=== PATIENT | male | born 1980 | race African-American/Black ===

== ENCOUNTER 2021-02-10 05:51 | Inpatient (IN) | payer SELFPAY ==
[~2021-02-10] VITALS: Ht 167.6 cm; Wt 72.6 kg
[2021-02-10] MEDS ORDERED: SODIUM CHLORIDE 0.9% 1000ML 1,000 ML IV STA (05:55)
[2021-02-10] MEDS ORDERED: MULTIVITAMINS- 12 INJECTION 10 ML, FOLIC ACID MDV 5 MG, THIAMINE HCL INJ 100 MG in SODI... IV STA (05:57)
[2021-02-10] MEDS ORDERED: DIAZEPAM INJ 5 MG/ML 2 ML IV ONE (06:30)
[2021-02-10 06:32] LABS: BASOPHILS % 0.2 % (0.0-1.0); HEMATOCRIT 32.4 % (38.2-49.6); HEMOGLOBIN 10.8 g/dL (14.0-18.0); LYMPHOCYTES # (AUTO) 0.9 (1.0-3.2); LYMPHOCYTES % 6.7 % (18.0-39.1); MEAN CORPUSCULAR HEMOGLOBIN 32.6 pg (28-32); MEAN CORPUSCULAR HGB CONC 33.3 g/dL (31-35); MEAN CORPUSCULAR VOLUME 97.9 fL (81-99); MONOCYTES # (AUTO) 1.9 (0.2-0.8); MONOCYTES % 14.7 % (4.4-11.3); NEUTROPHILS # (AUTO) 9.8 (2.1-6.9); NEUTROPHILS % 77.3 % (38.7-80.0); PLATELET COUNT 160 x10e3/uL (140-360); RED BLOOD COUNT 3.31 x10e6/uL (4.3-5.7)
[2021-02-10] MEDS ORDERED: PIPERACILLIN/TAZOBAC 3.375 GM in SODIUM CHLORIDE 0.9% 50ML 50 ML IV STA (06:59)
[2021-02-10 07:13] LABS: ALANINE AMINOTRANSFERASE 189 IU/L (0-55); ALBUMIN 4.1 g/dL (3.5-5.0); ALBUMIN/GLOBULIN RATIO 1.1 (0.8-2.0); ALKALINE PHOSPHATASE 67 IU/L (40-150); ANION GAP 43.8 mmol/L (8-16); BLOOD UREA NITROGEN 32 mg/dL (7-26); BUN/CREATININE RATIO 13 (6-25); CALCIUM 9.2 mg/dL (8.4-10.2); CHLORIDE 96 mmol/L (98-107); CREATINE KINASE 3978 IU/L (30-200); CREATININE, SERUM 2.45 mg/dL (0.72-1.25); EST GLOMERULAR FILTRATION RATE 35 ML/MIN (60-); POTASSIUM 3.8 mmol/L (3.5-5.1); SODIUM 145 mmol/L (136-145)
[2021-02-10 07:14] LABS: CARBON DIOXIDE 9 mmol/L (22-29); GLUCOSE 29 mg/dL (74-118)
[2021-02-10] MEDS ORDERED: DEXTROSE 50% SYRINGE 50 ML IV STA (07:14)
[2021-02-10 10:00] VITALS: BP_SYST 180; BP_SYST 186; BP_DIAS 96
[2021-02-10] MEDS ORDERED: LORAZEPAM 1 MG TAB PO PRN ×2 (11:00→11:15)
[2021-02-10] MEDS ORDERED: DEXTROSE 5%/0.9% SOD CHL 1,000 ML IV SCH (11:00)
[2021-02-10] MEDS ORDERED: ALBUTEROL/IPRATROPIUM 3 ML NEB NEB PRN (11:00)
[2021-02-10] MEDS ORDERED: THIAMINE HCL 100 MG TAB PO SCH (11:30)
[2021-02-10] MEDS ORDERED: SODIUM BICARBONATE 8.4% 100 ML in DEXTROSE 5% 1,000 ML IV SCH (11:30)
[2021-02-10 11:31] LABS: % IRON SATURATION 10 % (15-50); IRON 32 ug/dL (65-175); TOTAL IRON BINDING CAPACITY 319 ug/dL (261-478); TRANSFERRIN 228 mg/dL (174-364)
[2021-02-10] MEDS: LACTULOSE SYRUP 20 GM/30 ML UDC PO SCH ×2 (11:57→18:05)
[2021-02-10] MEDS ORDERED: SODIUM BICARBONATE 8.4% 50 ML VIAL IV STA (13:06)
[2021-02-10] MEDS: ALBUTEROL/IPRATROPIUM 3 ML NEB NEB SCH ×2 (13:44→20:50)
[2021-02-10 13:53] LABS: HIV 1&2 AB SCREEN NON-REACTIVE (NONREACTIVE)
[2021-02-10 14:00] LABS: CREATINE KINASE MB 41.7 ng/mL (0-5.0)
[2021-02-10 14:17] LABS: ABG HCO3 12 mmol/L (22-26); ABG PCO2 20 mmHg (35-45); ABG PH 7.38 (7.35-7.45); ABG PO2 139 mmHg (80-105); ABG TCO2 13
[2021-02-10] MEDS: SODIUM BICARBONATE 8.4% SYRING 150 ML in DEXTROSE 5% 1,000 ML IV SCH ×2 (14:25→22:55)
[2021-02-10 15:58] VITALS: BP 122/56
[2021-02-10 16:46] VITALS: BP 150/79
[2021-02-10] MEDS: POLYSACCARIDE IRON COMPLEX 150 MG CAP PO SCH (17:00)
[2021-02-10 20:00] VITALS: BP 146/96
[2021-02-10 21:05] LABS: CREATINE KINASE MB 25.2 ng/mL (0-5.0)
[2021-02-10] MEDS: LORAZEPAM 1 MG TAB PO PRN (21:05)
[2021-02-11] VITALS (8 sets, daily range): BP systolic 117–149; BP diastolic 70–107
[2021-02-11] MEDS: ALBUTEROL/IPRATROPIUM 3 ML NEB NEB SCH ×4 (01:00→19:00)
[2021-02-11 05:18] LABS: BASOPHILS % 0.2 % (0.0-1.0); EOSINOPHILS % 0.2 % (0.0-6.0); HEMATOCRIT 24.5 % (38.2-49.6); HEMOGLOBIN 8.9 g/dL (14.0-18.0); LYMPHOCYTES # (AUTO) 0.8 (1.0-3.2); LYMPHOCYTES % 16.2 % (18.0-39.1); MEAN CORPUSCULAR HEMOGLOBIN 33.3 pg (28-32); MEAN CORPUSCULAR HGB CONC 36.3 g/dL (31-35); MEAN CORPUSCULAR VOLUME 91.8 fL (81-99); MONOCYTES # (AUTO) 0.7 (0.2-0.8); MONOCYTES % 14.8 % (4.4-11.3); NEUTROPHILS # (AUTO) 3.4 (2.1-6.9); PLATELET COUNT 148 x10e3/uL (140-360); RED BLOOD COUNT 2.67 x10e6/uL (4.3-5.7); RED CELL DISTRIBUTION WIDTH 12.6 % (11.7-14.4)
[2021-02-11 07:33] LABS: ALANINE AMINOTRANSFERASE 141 IU/L (0-55); ALBUMIN 2.8 g/dL (3.5-5.0); ALBUMIN/GLOBULIN RATIO 1.1 (0.8-2.0); ALKALINE PHOSPHATASE 46 IU/L (40-150); BLOOD UREA NITROGEN 18 mg/dL (7-26); BUN/CREATININE RATIO 20 (6-25); CALCIUM 7.8 mg/dL (8.4-10.2); CARBON DIOXIDE 36 mmol/L (22-29); CHLORIDE 94 mmol/L (98-107); EST GLOMERULAR FILTRATION RATE > 60 ML/MIN (60-); GLUCOSE 134 mg/dL (74-118); SODIUM 143 mmol/L (136-145)
[2021-02-11] MEDS ORDERED: D5NS/KCL 20MEQ 1,000 ML IV SCH (09:45)
[2021-02-11] MEDS ORDERED: POTASSIUM CHLORIDE 20 MEQ TAB CR PO ONE (10:45)
[2021-02-11] MEDS ORDERED: SODIUM CHLORIDE 0.9% 1000ML 1,000 ML ONE (10:46)
[2021-02-11] MEDS ORDERED: THIAMINE HCL INJ 100 MG/ML 2ML VIAL ONE (10:46)
[2021-02-11] MEDS: MULTIVITAMINS- 12 INJECTION 10 ML, FOLIC ACID MDV 5 MG, THIAMINE HCL INJ 100 MG in SODI... IV SCH (11:03)
[2021-02-11] MEDS: POLYSACCARIDE IRON COMPLEX 150 MG CAP PO SCH ×2 (11:03→17:12)
[2021-02-11] MEDS: THIAMINE HCL INJ 100 MG/ML 2ML VIAL IV SCH (11:03)
[2021-02-11] MEDS: LORAZEPAM 1 MG TAB PO PRN ×2 (11:03→20:54)
[2021-02-11] MEDS: RIFAXIMIN 550 MG TABLET PO SCH ×2 (11:03→17:12)
[2021-02-11] MEDS: POTASSIUM CHLORIDE 20MEQ/100ML 100 ML IV SCH ×3 (11:03→16:02)
[2021-02-11] MEDS ORDERED: MAGNESIUM SULFATE 2GM/50ML 50 ML IV ONE (13:45)
[2021-02-11 14:30] LABS: ANION GAP 13.6 mmol/L (8-16); BLOOD UREA NITROGEN 14 mg/dL (7-26); BUN/CREATININE RATIO 16 (6-25); CALCIUM 8.1 mg/dL (8.4-10.2); CARBON DIOXIDE 38 mmol/L (22-29); CHLORIDE 92 mmol/L (98-107); CREATININE, SERUM 0.86 mg/dL (0.72-1.25); EST GLOMERULAR FILTRATION RATE > 60 ML/MIN (60-); GLUCOSE 152 mg/dL (74-118); SODIUM 141 mmol/L (136-145)
[2021-02-11 14:37] LABS: POTASSIUM 2.6 mmol/L (3.5-5.1)
[2021-02-11 22:28] LABS: CLARITY,URINE CLEAR (CLEAR); COLOR,URINE AMBER (YELLOW); LEUKOCYTE ESTERASE ,URINE NEGATIVE (NEGATIVE); NITRITE,URINE NEGATIVE (NEGATIVE); PROTEIN,URINE DIPSTICK 1+ (NEGATIVE)
[2021-02-11 22:29] LABS: KETONES,URINE 1+ (NEGATIVE)
[2021-02-11 22:30] LABS: AMPHETAMINES SCREEN,URINE NEGATIVE (NEGATIVE); PHENCYCLIDINE SCREEN,URINE NEGATIVE (NEGATIVE)
[2021-02-11 22:31] LABS: BENZODIAZEPINES SCREEN,URINE POSITIVE (NEGATIVE)
[2021-02-11 22:37] LABS: BACTERIA,URINE FEW /HPF; EPITHELIAL CELLS,URINE RARE /LPF; RBC,URINE 0-5 /HPF (0-5); WBC,URINE (MAN) 0-5 /HPF (0-5)
[2021-02-12] VITALS (8 sets, daily range): BP systolic 119–157; BP diastolic 90–110
[2021-02-12] MEDS: ALBUTEROL/IPRATROPIUM 3 ML NEB NEB SCH ×4 (01:00→19:00)
[2021-02-12 05:14] LABS: BASOPHILS % 0.3 % (0.0-1.0); EOSINOPHILS % 0.9 % (0.0-6.0); HEMATOCRIT 25.5 % (38.2-49.6); HEMOGLOBIN 8.8 g/dL (14.0-18.0); LYMPHOCYTES # (AUTO) 1.1 (1.0-3.2); LYMPHOCYTES % 33.1 % (18.0-39.1); MEAN CORPUSCULAR HEMOGLOBIN 32.6 pg (28-32); MEAN CORPUSCULAR HGB CONC 34.5 g/dL (31-35); MEAN CORPUSCULAR VOLUME 94.4 fL (81-99); MONOCYTES # (AUTO) 0.5 (0.2-0.8); MONOCYTES % 16.7 % (4.4-11.3); NEUTROPHILS # (AUTO) 1.5 (2.1-6.9); NEUTROPHILS % 48.7 % (38.7-80.0); PLATELET COUNT 160 x10e3/uL (140-360); RED CELL DISTRIBUTION WIDTH 12.8 % (11.7-14.4)
[2021-02-12] MEDS: MULTIVITAMINS- 12 INJECTION 10 ML, FOLIC ACID MDV 5 MG, THIAMINE HCL INJ 100 MG in SODI... IV SCH (05:15)
[2021-02-12 05:30] LABS: ANION GAP 12.4 mmol/L (8-16); BLOOD UREA NITROGEN 9 mg/dL (7-26); BUN/CREATININE RATIO 13 (6-25); CARBON DIOXIDE 32 mmol/L (22-29); CHLORIDE 97 mmol/L (98-107); CREATININE, SERUM 0.68 mg/dL (0.72-1.25); EST GLOMERULAR FILTRATION RATE > 60 ML/MIN (60-); GLUCOSE 93 mg/dL (74-118); SODIUM 139 mmol/L (136-145)
[2021-02-12 05:47] LABS: POTASSIUM 2.4 mmol/L (3.5-5.1)
[2021-02-12] MEDS ORDERED: POTASSIUM CHLORIDE 20MEQ/100ML 100 ML IV ONE ×2 (06:30)
[2021-02-12] MEDS: POTASSIUM CHLORIDE 20MEQ/100ML 100 ML IV SCH ×3 (06:42→13:23)
[2021-02-12] MEDS ORDERED: SODIUM CHLORIDE 0.9% 1000ML 1,000 ML ONE ×2 (09:42→17:42)
[2021-02-12] MEDS: POLYSACCARIDE IRON COMPLEX 150 MG CAP PO SCH ×2 (09:56→17:33)
[2021-02-12] MEDS: LACTULOSE SYRUP 20 GM/30 ML UDC PO SCH (09:56)
[2021-02-12] MEDS: RIFAXIMIN 550 MG TABLET PO SCH ×2 (09:56→17:33)
[2021-02-12] MEDS ORDERED: LORAZEPAM 1 MG TAB PO PRN (11:00)
[2021-02-12] MEDS ORDERED: KCL 20MEQ/.9 SOD CHL 1,000 ML IV ONE (12:45)
[2021-02-12] MEDS: THIAMINE HCL INJ 100 MG/ML 2ML VIAL IV SCH (13:31)
[2021-02-12] MEDS: IRON SUCROSE 100 MG in SODIUM CHLORIDE 0.9% 100 ML 100 ML IV SCH (15:22)
[2021-02-12] MEDS ORDERED: THIAMINE HCL INJ 100 MG/ML 2ML VIAL ONE (17:42)
[2021-02-13] VITALS (8 sets, daily range): BP systolic 138–177; BP diastolic 94–115
[2021-02-13] MEDS: MULTIVITAMINS- 12 INJECTION 10 ML, FOLIC ACID MDV 5 MG, THIAMINE HCL INJ 100 MG in SODI... IV SCH (01:30)
[2021-02-13] MEDS: ALBUTEROL/IPRATROPIUM 3 ML NEB NEB SCH ×3 (06:55→19:30)
[2021-02-13 06:56] LABS: ANION GAP 11.9 mmol/L (8-16); BLOOD UREA NITROGEN 7 mg/dL (7-26); BUN/CREATININE RATIO 11 (6-25); CALCIUM 8.2 mg/dL (8.4-10.2); CARBON DIOXIDE 30 mmol/L (22-29); CHLORIDE 103 mmol/L (98-107); CREATININE, SERUM 0.65 mg/dL (0.72-1.25); EST GLOMERULAR FILTRATION RATE > 60 ML/MIN (60-); GLUCOSE 86 mg/dL (74-118); SODIUM 142 mmol/L (136-145)
[2021-02-13 07:04] LABS: POTASSIUM 2.9 mmol/L (3.5-5.1)
[2021-02-13] MEDS ORDERED: POTASSIUM CHLORIDE 20MEQ/100ML 200 ML IV ONE (09:15)
[2021-02-13] MEDS ORDERED: POTASSIUM CHLORIDE 10MEQ EA PO ONE ×2 (09:15→14:45)
[2021-02-13] MEDS: THIAMINE HCL INJ 100 MG/ML 2ML VIAL IV SCH (10:08)
[2021-02-13] MEDS: RIFAXIMIN 550 MG TABLET PO SCH ×2 (10:08→16:39)
[2021-02-13] MEDS: POLYSACCARIDE IRON COMPLEX 150 MG CAP PO SCH ×2 (10:08→16:39)
[2021-02-13] MEDS: LACTULOSE SYRUP 20 GM/30 ML UDC PO SCH (10:08)
[2021-02-13] MEDS ORDERED: METOPROLOL TARTRATE 25 MG TAB PO ONE (12:30)
[2021-02-13] MEDS ORDERED: NIFEDIPINE CR 30 MG TAB PO SCH (14:00)
[2021-02-13] MEDS ORDERED: FUROSEMIDE INJ 10 MG/ML 2 ML VIAL IV ONE (14:45)
[2021-02-13] MEDS ORDERED: AMILORIDE HCL 5 MG TAB PO ONE (15:30)
[2021-02-13] MEDS: HYDRALAZINE HCL 20 MG/ML VIAL IV PRN (15:40)
[2021-02-13] MEDS: METOPROLOL TARTRATE 25 MG TAB PO SCH (16:39)
[2021-02-13] MEDS: IRON SUCROSE 100 MG in SODIUM CHLORIDE 0.9% 100 ML 100 ML IV SCH (16:39)
[2021-02-14] VITALS: BP 154/99
[2021-02-14] MEDS: ALBUTEROL/IPRATROPIUM 3 ML NEB NEB SCH ×2 (07:11→13:38)
[2021-02-14] MEDS: LACTULOSE SYRUP 20 GM/30 ML UDC PO SCH (07:30)
[2021-02-14 08:04] VITALS: BP 149/114
[2021-02-14 08:19] VITALS: BP 149/114
[2021-02-14] MEDS ORDERED: SODIUM CHLORIDE 0.9% 100 ML ONE (09:46)
[2021-02-14] MEDS: IRON SUCROSE 100 MG in SODIUM CHLORIDE 0.9% 100 ML 100 ML IV SCH (09:52)
[2021-02-14] MEDS: THIAMINE HCL INJ 100 MG/ML 2ML VIAL IV SCH (09:54)
[2021-02-14] MEDS: POLYSACCARIDE IRON COMPLEX 150 MG CAP PO SCH (09:59)
[2021-02-14] MEDS: RIFAXIMIN 550 MG TABLET PO SCH (09:59)
[2021-02-14] MEDS: METOPROLOL TARTRATE 25 MG TAB PO SCH (10:00)
[2021-02-14 10:37] LABS: BLOOD UREA NITROGEN 6 mg/dL (7-26); BUN/CREATININE RATIO 8 (6-25); CALCIUM 9.6 mg/dL (8.4-10.2); CARBON DIOXIDE 26 mmol/L (22-29); CHLORIDE 102 mmol/L (98-107); CREATININE, SERUM 0.78 mg/dL (0.72-1.25); EST GLOMERULAR FILTRATION RATE > 60 ML/MIN (60-); GLUCOSE 94 mg/dL (74-118); SODIUM 136 mmol/L (136-145)
[2021-02-14] MEDS ORDERED: NIFEDIPINE CR 30 MG TAB PO SCH (12:00)
[2021-02-14 12:51] VITALS: BP 162/110
[2021-02-14] MEDS: HYDRALAZINE HCL 20 MG/ML VIAL IV PRN (13:56)
== END 2021-02-14 14:52 | disposition left against medical advice (07) | DRG 441 ==
LOC: ER 06:10 → ERHOLD 07:17 → MED/SURG2 08:48
PROVIDERS: ADMIT Internal Medicine; ATTEND Internal Medicine
DX: K72.90 Hepatic failure, unspecified without coma (principal); N17.0 Acute kidney failure with tubular necrosis; M62.82 Rhabdomyolysis; E87.2 Acidosis; E16.2 Hypoglycemia, unspecified; E86.0 Dehydration; F41.9 Anxiety disorder, unspecified; Z72.0 Tobacco use; E87.6 Hypokalemia; R09.02 Hypoxemia; F10.20 Alcohol dependence, uncomplicated; K70.30 Alcoholic cirrhosis of liver without ascites; D64.9 Anemia, unspecified; Z20.822 Contact with and (suspected) exposure to COVID-19
CPT/HCPCS: 36415; 36600; 70450; 71045; 76700; 80048; 80053; 80307; 80320; 80329; 81001; 82140; 82550; 82553; 82607; 82805; 82947; 82948; 83036; 83540; 83605; 83735; 83880; 84132; 84300; 84466; 84484; 84550; 85025; 87040; 87390; 93005; 96361; 99284; G0433; G0435; J0360; J1756; J1940; J2543; J3360; J3411; J3475; J3480; J7030; J7050; J7070; J7799; U0002